=== PATIENT | male | born 1955 | race Caucasian/White ===

== ENCOUNTER 2017-12-30 03:43 | Emergency (ER) | payer MEDICAID, OTHER ==
--- NOTE | 2017-12-30 04:01 | EDM.PDOC ---
ED HPI GENERAL MEDICAL PROBLEM - General Chief Complaint: Abdominal Pain Stated Complaint: [facility] Time Seen by Provider: 12/30/17 03:53 - History of Present Illness INITIAL COMMENTS - FREE TEXT/NARRATIVE: 62-year-old male presents emergency room via EMS with severe abdominal pain. This pain started around 1:00 this morning. The patient vomited twice and then developed severe abdominal pain. He ate supper around 10:00 this evening and has been drinking beer. According to the patient's he drinks on a heavy and regular basis. The patient denies any chest pain with this. No worsening shortness of breath he does have COPD. Abdomen Pain Score (Numeric/FACES): 10 - Related Data Allergies Allergy/AdvReac Type Severity Reaction Status Date / Time ibuprofen [From Motrin] Allergy Hives Verified 12/30/17 06:05 Home Meds: Home Meds Albuterol [Ventolin HFA] 2 puff INH Q4H PRN 11/24/14 [History] Gabapentin [Neurontin] 600 mg PO TID 11/24/14 [History] Hydrophilic Cream [Kerodex 71] 1 applic TP ASDIRECTED PRN 11/24/14 [History] Multivitamin [Multi-Vitamin Daily] 1 each PO DAILY 11/24/14 [History] Pantoprazole [Protonix] 40 mg PO BID 11/24/14 [History] Propranolol [Inderal LA 24 Hr] 80 mg PO DAILY 11/24/14 [History] Terbinafine HCl [Athlete's Foot] 24 gm TP BID 11/24/14 [History] Tiotropium [Spiriva] 18 mcg INH BID 11/24/14 [History] Valproic Acid 750 mg PO BID 11/24/14 [History] atorvaSTATin [Lipitor] 80 mg PO BEDTIME 11/24/14 [History] Levofloxacin [Levaquin] 750 mg PO DAILY #5 tablet 09/15/15 [Rx] Past Medical History HEENT History: Reports: Impaired Vision Other HEENT History: wears glasses Cardiovascular History: Reports: Heart Murmur, High Cholesterol Respiratory History: Reports: Bronchitis, Recurrent, COPD, Pneumonia, Recurrent Gastrointestinal History: Reports: GERD, Hiatal Hernia Genitourinary History: Reports: Neurogenic Bladder Other Genitourinary History: "after surgery couldn't pee." Musculoskeletal History: Reports: Arthritis, Back Pain, Chronic, Fracture, Neck Pain, Chronic Neurological History: Reports: Brain Injury Other Neuro History: 2 traumatic brain surgerys, states has metal plates in head. Psychiatric History: Reports: Addiction, Anxiety Other Psychiatric History: goes to [facility] Hematologic History: Reports: None Dermatologic History: Reports: None - Infectious Disease History Infectious Disease History: Reports: Chicken Pox, Measles - Past Surgical History HEENT Surgical History: Reports: Tonsillectomy GI Surgical History: Reports: Appendectomy Social & Family History - Family History Family Medical History: Noncontributory ED ROS GENERAL - Review of Systems Review Of Systems: See Below Constitutional: Reports: No Symptoms HEENT: Reports: No Symptoms Respiratory: Reports: Cough. Denies: Shortness of Breath, Sputum Cardiovascular: Reports: No Symptoms GI/Abdominal: Reports: Abdominal Pain, Nausea, Vomiting. Denies: Black Stool, Bloody Stool, Constipation, Diarrhea, Difficulty Swallowing : Reports: No Symptoms Musculoskeletal: Reports: No Symptoms Skin: Reports: No Symptoms Neurological: Reports: No Symptoms, Other (Several brain surgeries resulting from traumatic brain injury) Hematologic/Lymphatic: Reports: No Symptoms Immunologic: Reports: No Symptoms ED EXAM, GI/ABD - Physical Exam Exam: See Below Exam Limited By: Intoxication General Appearance: Alert, Moderate Distress (From the pain), Other (He appears a little pale. He is hypotensive which is unusual for him.) Head: Atraumatic, Normocephalic Neck: Normal Inspection, Supple, Non-Tender, Full Range of Motion. No: Lymphadenopathy (L), Lymphadenopathy (R) Respiratory/Chest: No Respiratory Distress, Lungs Clear, Normal Breath Sounds Cardiovascular: Regular Rate, Rhythm, No Edema, No Murmur GI/Abdominal Exam: Other (Decreased bowel sounds significant discomfort all over no pulsatile masses) (Male) Exam: No Hernia Extremities: Normal Inspection, Joint Swelling Neurological: Alert, Other (The patient appears to be under the influence of alcohol) Lymphatic: No Adenopathy EKG INTERPRETATION EKG Date: 12/30/17 Rhythm: NSR [place]: LAD-Left [place] Deviation P-Wave: Present QRS: Other (Incomplete left bundle) ST-T: Normal (Considering left bundle branch block) QT: Prolonged (Order line) Comparison: NA - No Prior EKG EKG Interpretation Comments: Abnormal Course - Vital Signs Last Recorded V/S: Last Vital Signs Temp 35.9 C 12/30/17 05:56 Pulse 99 12/30/17 05:56 Resp 27 H 12/30/17 05:56 BP 95/63 12/30/17 05:56 Pulse Ox 99 12/30/17 03:48 - Orders/Labs/Meds Orders: Active Orders 24 hr Category Date Time Status EKG Documentation Completion [RC] STAT Care 12/30/17 04:14 Active Chest Abdomen Pelvis w Cont [CT] Stat Exams 12/30/17 04:09 Taken CBC WITH MANUAL DIFF [HEME] Stat Lab 12/30/17 05:06 Results INR,PT,PROTHROMBIN TIME [COAG] Stat Lab 12/30/17 05:06 Received PTT,PARTIAL THROMBOPLSTIN TIME [COAG] Stat Lab 12/30/17 05:06 Received RED BLOOD CELLS LP [BBK] Stat Lab 12/30/17 05:25 Ordered TYPE AND SCREEN [BBK] Stat Lab 12/30/17 05:25 Ordered Lactated Ringers [Ringers, Lactated] 1,000 ml Med 12/30/17 05:23 Active IV .BOLUS Sodium Chloride 0.9% [Normal Saline] 1,000 ml Med 12/30/17 04:15 Active IV ASDIRECTED Medication Orders Sodium Chloride (Normal Saline) 1,000 mls @ 125 mls/hr IV ASDIRECTED JOSE Last Admin: 12/30/17 04:17 Dose: 125 mls/hr Lactated Ringer's (Ringers, Lactated) 1,000 mls @ 1,000 mls/hr IV .BOLUS ONE Stop: 12/30/17 06:22 Labs: Laboratory Tests 12/30/17 12/30/17 Range/Units 05:06 05:06 WBC 14.57 H (4.23-9.07) K/mm3 RBC 3.98 L (4.63-6.08) M/mm3 Hgb 11.9 L (13.7-17.5) gm/L Hct 35.4 L (40.1-51.0) % MCV 88.9 (79.0-92.2) fl MCH 29.9 (25.7-32.2) pg MCHC 33.6 (32.2-35.5) g/dl RDW Std Deviation 41.4 (35.1-43.9) fL Plt Count 535 H (163-337) K/mm3 MPV 10.3 (9.4-12.3) fl Sodium 133 L (136-145) mEq/L Potassium 3.2 L (3.5-5.1) mEq/L Chloride 95 L (98-107) mEq/L Carbon Dioxide 24 (21-32) mEq/L Anion Gap 17.2 H (5-15) BUN 12 (7-18) mg/dL Creatinine 0.8 (0.7-1.3) mg/dL Est Cr Clr Drug Dosing 84.39 mL/min Estimated GFR (MDRD) > 60 (>60) mL/min BUN/Creatinine Ratio 15.0 (14-18) Glucose 99 (80-115) mg/dL Calcium 8.4 L (8.5-10.1) mg/dL Total Bilirubin 0.2 (0.2-1.0) mg/dL AST 9 L (15-37) U/L ALT 13 L (16-63) U/L Alkaline Phosphatase 81 (46-116) U/L Troponin I < 0.017 (0.00-0.056) ng/mL Total Protein 6.9 (6.4-8.2) g/dl Albumin 2.8 L (3.4-5.0) g/dl Globulin 4.1 gm/dL Albumin/Globulin Ratio 0.7 L (1-2) Ethyl Alcohol 0.05 (0.00) gm% Meds: Medications Generic Name Dose Route Start Last Admin Trade Name Freq PRN Reason Stop Dose Admin Sodium Chloride 1,000 mls @ 125 mls/hr 12/30/17 04:15 12/30/17 04:17 Normal Saline IV 125 mls/hr ASDIRECTED JOSE Administration Lactated Ringer's 1,000 mls @ 1,000 mls/hr 12/30/17 05:23 Ringers, Lactated IV 12/30/17 06:22 .BOLUS ONE Discontinued Medications Generic Name Dose Route Start Last Admin Trade Name Freq PRN Reason Stop Dose Admin Fentanyl 50 mcg 12/30/17 04:09 12/30/17 04:24 Sublimaze IVPUSH 12/30/17 04:10 50 mcg ONETIME ONE Administration Iopamidol 40 ml 12/30/17 05:55 12/30/17 05:59 Isovue-370 (76%) IVPUSH 05/25/18 05:56 40 ml ONETIME ONE Administration Iopamidol 100 ml 12/30/17 05:55 12/30/17 05:59 Isovue-370 (76%) IVPUSH 12/30/17 05:56 100 ml ONETIME ONE Administration Pantoprazole Sodium 80 mg 12/30/17 04:45 12/30/17 05:04 Protonix Iv IVPUSH 12/30/17 04:46 80 mg .BOLUS ONE Administration - Re-Assessments/Exams Free Text/Narrative Re-Assessment/Exam: 12/30/17 05:10 CT results pending per my interpretation there is lots of free fluid around the liver and spleen scattered throughout the abdomen and a large amount in the pelvis. Stomach and duodenum is duct dilated not a lot of free air. Initially I was concerned about a perforated ulcer this does not appear to be the case however the hansa is hypotensive has free fluid. Discussed the situation with Dr. Fields ER physician at [facility] in [place] who was able to review the CT and agrees and is willing to accept the patient in transfer. Initially I did discuss situation with Dr. Bermudez our on-call surgeon who recommended transfer of the patient. 12/30/17 05:22 Virtual radiology called and believe this gentleman has a ruptured spleen I discussed situation with the patient's and the patient there is no history of trauma. Give Dr. Fields an update anticipating transfusion 2 units of unmatched blood, and a couple units of FFP. Departure - Departure Time of Disposition: 05:34 Disposition: DC/Tfer to Acute Hospital 02 Clinical Impression: Acute bleeding, Splenic rupture - Discharge Information Forms: ED Department Discharge - My Orders Last 24 Hours: My Active Orders 12/30/17 04:09 Chest Abdomen Pelvis w Cont [CT] Stat 12/30/17 04:14 EKG Documentation Completion [RC] STAT 12/30/17 04:15 Sodium Chloride 0.9% [Normal Saline] 1,000 ml IV ASDIRECTED 12/30/17 05:06 CBC WITH MANUAL DIFF [HEME] Stat INR,PT,PROTHROMBIN TIME [COAG] Stat PTT,PARTIAL THROMBOPLSTIN TIME [COAG] Stat 12/30/17 05:23 Lactated Ringers [Ringers, Lactated] 1,000 ml IV .BOLUS 12/30/17 05:25 RED BLOOD CELLS LP [BBK] Stat TYPE AND SCREEN [BBK] Stat - Assessment/Plan Last 24 Hours: My Active Orders 12/30/17 04:09 Chest Abdomen Pelvis w Cont [CT] Stat 12/30/17 04:14 EKG Documentation Completion [RC] STAT 12/30/17 04:15 Sodium Chloride 0.9% [Normal Saline] 1,000 ml IV ASDIRECTED 12/30/17 05:06 CBC WITH MANUAL DIFF [HEME] Stat INR,PT,PROTHROMBIN TIME [COAG] Stat PTT,PARTIAL THROMBOPLSTIN TIME [COAG] Stat 12/30/17 05:23 Lactated Ringers [Ringers, Lactated] 1,000 ml IV .BOLUS 12/30/17 05:25 RED BLOOD CELLS LP [BBK] Stat TYPE AND SCREEN [BBK] Stat
[2017-12-30] MEDS ORDERED: fentaNYL 100 MCG/2 ML SDV IVPUSH ONE (04:09)
[2017-12-30] MEDS ORDERED: Sodium Chloride 0.9% 1,000 ML IV SCH (04:15)
[2017-12-30] MEDS ORDERED: Pantoprazole 40 MG Vial IVPUSH ONE (04:45)
[2017-12-30] MEDS ORDERED: Lactated Ringers 1,000 ML IV ONE (05:23)
[2017-12-30 05:54] VITALS: BP 95/63
[2017-12-30] MEDS ORDERED: Iopamidol 755 MG/ML 50 ML Bottle IVPUSH ONE (05:55)
[2017-12-30] MEDS ORDERED: Iopamidol 755 Mg/ML 100 ML Bottle IVPUSH ONE (05:55)
--- NOTE | 2017-12-30 10:43 | CT ---
CT chest Technique: Multiple axial sections were obtained from above the lung apices inferiorly through the lung bases. Intravenous contrast was utilized. Comparison: Prior noncontrast chest CT study of 10/05/12. Findings: Aorta shows no dissection. Mild atherosclerotic change is seen. Visualized pulmonary arteries show no filling defects of pulmonary embolism. No pericardial thickening is seen. Small normal-appearing lymph nodes are seen within the mediastinum. No axillary adenopathy is seen. Emphysematous change is seen. Slight areas of scarring are seen within both lungs. Findings are fairly stable from previous CT exam. Bone window settings show mild degenerative change within the spine with mild scoliosis. Nothing acute seen within the osseous structures. Impression: 1. Emphysematous change. Other incidental findings. Nothing acute is identified on CT study of the chest. Diagnostic code #3 I agree with preliminary report from [employer], finalized at 12/30/17, 6:[address] abdomen and pelvis Technique: Multiple axial sections were obtained from above the dome of the diaphragm inferiorly to the pubic symphysis. Intravenous contrast was utilized. No oral contrast has been given. Comparison: No prior CT abdomen or pelvis exam is available. Findings: Diffusely abnormal spleen is seen which may represent spontaneous rupture or bleeding from a vascular anomaly. There is blood being seen around the liver as well as blood being seen within the dependent portions of the pelvis. Liver shows no focal abnormality. Aorta shows atherosclerotic change without aneurysm or dissection. Adrenal glands show no abnormality. Cortical cyst is noted within the left kidney measuring approximately 1.2 cm. Kidneys are otherwise unremarkable. Pancreas appears normal. No retroperitoneal adenopathy or mesenteric abnormalities are seen. No pelvic mass or adenopathy is seen. Scattered degenerative change is noted within the spine with no acute osseous abnormality seen. Lucent lesion is seen within the right and left iliac wings felt to represent more focal osteopenia. Impression: 1. Abnormal spleen compatible with splenic rupture or intrasplenic hematoma from vascular anomaly. There is blood being seen around the liver as well as blood within the dependent portions of the pelvis. 2. Other incidental findings as noted above. Diagnostic code #5 I agree with preliminary report from [employer], finalized at 12/30/17, 6:32 AM Central Time
== END 2017-12-30 06:15 ==
LOC: JD.ED 03:43
DX: D73.5 Infarction of spleen (principal); R58 Hemorrhage, not elsewhere classified; E78.00 Pure hypercholesterolemia, unspecified; Z88.6 Allergy status to analgesic agent; Z79.899 Other long term (current) drug therapy
CPT/HCPCS: 36415; 71260; 74177; 80053; 84484; 85007; 85027; 85610; 85730; 93005; 96361; 96374; 96375; 99285; C9113; G0480; J3010; J7040; J7120; P9016; Q9967; 36430; 86900; 86901; 86922; P9017

== ENCOUNTER 2019-08-15 05:41 | Emergency (ER) | payer OTHER ==
[2019-08-15 05:58] VITALS: BP 114/76; PULSE 86
--- NOTE | 2019-08-15 06:42 | EDM.PDOC ---
ED HPI GENERAL MEDICAL PROBLEM - General Chief Complaint: Upper Extremity Injury/Pain Stated Complaint: INJURED RIGHT WRIST Time Seen by Provider: 08/15/19 06:13 Source of Information: Reports: Patient, Family () History Limitations: Reports: No Limitations - History of Present Illness INITIAL COMMENTS - FREE TEXT/NARRATIVE: Mr. Cabrera is a very pleasant 64-year-old man with a past medical history significant for to traumatic brain injuries in 2012, both requiring craniotomy, who states that he "tweaked" his right wrist while getting some guns down from overhead, in order to clean them, yesterday. He states that he had no pain initially, but that he woke up around 03:00 this morning with pain and swelling to the radial aspect of his right wrist. No other recent trauma or injury to his wrist. No prior similar symptoms. The patient applied a Lidoderm patch to the dorsum of his right wrist. The patient's PCP is SAMANTHA Basurto, at the [facility]. The patient received an influenza vaccine this season. Right Wrist Pain Score (Numeric/FACES): 5 - Related Data Allergies Allergy/AdvReac Type Severity Reaction Status Date / Time ibuprofen [From Motrin] Allergy Hives Verified 03/06/18 03:00 Home Meds: Home Meds Albuterol [Ventolin HFA] 2 puff INH Q4H PRN 11/24/14 [History] Gabapentin [Neurontin] 600 mg PO TID 11/24/14 [History] Multivitamin [Multi-Vitamin Daily] 1 each PO DAILY 11/24/14 [History] Pantoprazole [Protonix] 40 mg PO BID 11/24/14 [History] Propranolol [Inderal LA 24 Hr] 80 mg PO DAILY 11/24/14 [History] Valproic Acid 750 mg PO BID 11/24/14 [History] Past Medical History HEENT History: Reports: Impaired Vision Other HEENT History: wears glasses Cardiovascular History: Reports: High Cholesterol Respiratory History: Reports: COPD (PFT-proven) Gastrointestinal History: Reports: GERD, Hiatal Hernia, Other (See Below) ( Liver + speeen laceration) Musculoskeletal History: Reports: Arthritis, Fracture (left thumb) Neurological History: Reports: Brain Injury (x 2, 2012, both requiring craniotomy) Psychiatric History: Reports: Addiction (alcohol), Anxiety - Infectious Disease History Infectious Disease History: Reports: Chicken Pox, Measles - Past Surgical History Head Surgeries/Procedures: Reports: Craniotomy (x 2, both in 2013) HEENT Surgical History: Reports: Oral Surgery (wisdom teeth extraction), Tonsillectomy GI Surgical History: Reports: Appendectomy Social & Family History - Family History Family Medical History: Noncontributory - Tobacco Use Smoking Status *Q: Current Every Day Smoker Years of Tobacco use: 50 Packs/Tins Daily: 1 - Caffeine Use Caffeine Use: Reports: None - Alcohol Use Alcohol Use History: Yes Date/Time of Last Drink Comment: Alcoholic, but currently drinking responsibly Alcohol Use Frequency: Socially - Recreational Drug Use Recreational Drug Use: Yes Drug Use in Last 12 Months: No Recreational Drug Type: Reports: Marijuana/Hashish (can't remember when last smoked) - Living Situation & Occupation Living situation: Reports: , with Spouse Occupation: Retired Review of Systems - Review of Systems Review Of Systems: Comprehensive ROS is negative, except as noted in HPI. Musculoskeletal: Reports: Neck Pain, Back Pain ED EXAM, GENERAL - Physical Exam Exam: See Below Exam Limited By: No Limitations General Appearance: Alert, WD/WN, No Apparent Distress Extremities: Other (There is very mild swelling to the radial aspect of the patient's right wrist, with no other visible abnormalities, such as erythema, ecchymosis, or abrasion. The patient has considerable tenderness to the anatomic snuffbox, dorsal to the extensor pollicis longus. Pain is induced in this area with attempts at ROM. Neurovascular status of the right hand is intact.) Course - Vital Signs Last Recorded V/S: Last Vital Signs Temp 36.9 C 08/15/19 05:56 Pulse 86 08/15/19 05:56 Resp 16 08/15/19 05:56 BP 114/76 08/15/19 05:56 Pulse Ox 99 08/15/19 05:56 - Re-Assessments/Exams Free Text/Narrative Re-Assessment/Exam: 08/15/19 06:36 The patient has tenderness in his anatomic snuffbox. He likely has a radiocarpal ligament strain. There is no suggestion that he has a fracture, therefore x-rays are not indicated. I am recommending that he purchase an over- the-counter wrist brace, that he wear it for at least a week, and ice the area as much as possible for several days. Since he is allergic to ibuprofen, he can take Tylenol for discomfort. I will refer him to Ortho, in the event that his wrist doesn't get better by 2 weeks. Departure - Departure Time of Disposition: 06:39 Disposition: Home, Self-Care 01 Condition: Good Clinical Impression: Sprain of radiocarpal ligament of right wrist - Discharge Information *PRESCRIPTION DRUG MONITORING PROGRAM REVIEWED*: Not Applicable *COPY OF PRESCRIPTION DRUG MONITORING REPORT IN PATIENT MARTHA: Not Applicable Referrals: Ashwin Toledo MD [Physician] - Radha Mosley PA-C [Ordering Only Provider] - Additional Instructions: You were seen in the emergency room after developing right wrist pain this morning after cleaning your guns yesterday. Based on your history and physical examination, you have most likely strained a radiocarpal ligament in your right wrist. We recommend that you purchase an [id number] wrist brace and wear it as much as possible. We recommend that you apply ice to the affected area as much as possible for the next few days. Take [id number] Tylenol as needed for discomfort. If your wrist has not significantly improved within 2 weeks, please follow-up with the Orthopedic Surgeon Dr. Ashwin Toledo. If any other problems, please do not hesitate to return to the ER. Sepsis Event Note - Evaluation Sepsis Screening Result: No Definite Risk - Focused Exam Vital Signs: Vital Signs Temp Pulse Resp BP Pulse Ox 08/15/19 05:56 36.9 C 86 16 114/76 99 Date Exam was Performed: 08/15/19 Time Exam was Performed: 06:36
== END 2019-08-15 06:48 | disposition home or self-care (01) ==
LOC: JD.ED 05:41
DX: S63.501A Unspecified sprain of right wrist, initial encounter (principal); J44.9 Chronic obstructive pulmonary disease, unspecified; K21.9 Gastro-esophageal reflux disease without esophagitis; F17.210 Nicotine dependence, cigarettes, uncomplicated; Z88.6 Allergy status to analgesic agent; Z79.899 Other long term (current) drug therapy; X50.1XXA Overexertion from prolonged static or awkward postures, initial encounter; Y93.89 Activity, other specified
CPT/HCPCS: 99282; 99283

== ENCOUNTER 2019-12-14 09:33 | Emergency (ER) | payer OTHER ==
[2019-12-14] MEDS ORDERED: Metoclopramide 10 MG/2 ML SDV IVPUSH ONE (09:58)
[2019-12-14] MEDS ORDERED: HYDROmorphone 0.5 MG/0.5 ML Syringe IVPUSH ONE (09:58)
[2019-12-14] MEDS ORDERED: Aspirin 81 MG Tab.Chew PO ONE (09:58)
[2019-12-14] MEDS ORDERED: Sodium Chloride 0.9% 1,000 ML IV SCH (10:00)
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
[2019-12-14] MEDS ORDERED: Nitroglycerin/D5W 25 MG/250 ML BOTTLE IV SCH (10:15)
--- NOTE | 2019-12-14 10:27 | CR ---
Chest: Portable view of the chest was obtained. Comparison: Prior chest x-ray of 09/15/15. Heart size and mediastinum are normal. Emphysematous and subpleural bleb is noted within the left upper chest which has slightly increased in size from previous exam. Lungs show no acute parenchymal change. Heart size and mediastinum are normal. Bony structures are grossly intact. Impression: 1. Emphysematous and subpleural bleb within the left upper chest which has slightly increased in size from prior chest x-ray. 2. Nothing acute is otherwise seen on portable chest x-ray. Diagnostic code #3 This report was dictated in MDT
[2019-12-14] MEDS ORDERED: Albuterol/Ipratropium 3.0-0.5 MG/3 ML Neb Soln NEB ONE (10:36)
[2019-12-14 11:32] VITALS: BP 109/72; PULSE 60
== END 2019-12-14 11:40 | disposition home or self-care (01) ==
LOC: JD.ED 09:33
DX: J40 Bronchitis, not specified as acute or chronic (principal); R09.1 Pleurisy; F17.210 Nicotine dependence, cigarettes, uncomplicated; J44.9 Chronic obstructive pulmonary disease, unspecified; K21.9 Gastro-esophageal reflux disease without esophagitis; Z88.6 Allergy status to analgesic agent
CPT/HCPCS: 36415; 71045; 80053; 82553; 83735; 83880; 84484; 85007; 85027; 85610; 86140; 94640; 96365; 96375; 99285; A9270; J1170; J2765; J3490; J7030; 93010; 99284

== ENCOUNTER 2020-01-27 18:42 | Emergency (ER) | payer MEDICARE, OTHER ==
[2020-01-27 18:53] VITALS: BP 133/75; PULSE 71
[2020-01-27] MEDS ORDERED: HYDROmorphone 0.5 MG/0.5 ML Syringe IM ONE (19:09)
--- NOTE | 2020-01-27 19:15 | EDM.PDOC ---
ED HPI GENERAL MEDICAL PROBLEM - General Chief Complaint: Lower Extremity Injury/Pain Stated Complaint: LEFT KNEE INJURY Time Seen by Provider: 01/27/20 18:49 Source of Information: Reports: Patient, RN Notes Reviewed History Limitations: Reports: No Limitations - History of Present Illness INITIAL COMMENTS - FREE TEXT/NARRATIVE: Patient is a 64-year-old male who presents to the ED for his left knee pain. Patient notes that this pain started this morning very suddenly, he states he was just sitting on his couch, putting on his longjohns when his knee started to hurt. He denies any trauma or twisting injury to the knee. Patient does not remember injuring it in any way a few days prior to this as well. It is not reddened, there is a mild amount of swelling compared to the right knee, but no obvious swelling appreciated. There is an area that is tender to touch on the left inferiomedial aspect of the knee, he has had no surgery to the knee in the past. Patient states it is a sharp stabbing pain, and he states it hurts very much to walk, and states he has not been walking around much at all today due to the pain. Usually uses a cane or walker for ambulation, but again he has not been walking much at all due to the pain. Patient states he does have an allergy to ibuprofen, he did not take any sort of Tylenol. He was given 1 tablet of his 's generic Flexeril, and been using a lidocaine patch to the area nothing seems to really be helping. Patient denies any other sick-like symptoms, fever/chills, cough/shortness of breath, nausea/vomiting/diarrhea. Patient further denies any numbness or tingling distal to the extremity, or pain more proximal to the injury. He can plantarflex and dorsiflex his right foot without much issue. Left Knee Pain Score (Numeric/FACES): 9 - Related Data Allergies Allergy/AdvReac Type Severity Reaction Status Date / Time ibuprofen [From Motrin] Allergy Severe Hives Verified 01/27/20 18:52 Home Meds: Home Meds Albuterol [Ventolin HFA] 2 puff INH Q4H PRN 11/24/14 [History] Gabapentin [Neurontin] 600 mg PO TID 11/24/14 [History] Multivitamin [Multi-Vitamin Daily] 1 each PO DAILY 11/24/14 [History] Pantoprazole [Protonix] 40 mg PO BID 11/24/14 [History] Propranolol [Inderal LA 24 Hr] 80 mg PO DAILY 11/24/14 [History] Acetaminophen/HYDROcodone [Ewing 325-5 MG] 1 tab PO Q6H PRN #15 tablet 01/27/20 [Rx] Aspirin 81 mg PO DAILY 01/27/20 [History] Cholecalciferol (Vitamin D3) [Vitamin D3] 400 unit PO DAILY 01/27/20 [History] atorvaSTATin Calcium [Atorvastatin Calcium] 80 mg PO BEDTIME 01/27/20 [History] predniSONE 20 mg PO ASDIRECTED #15 tab 01/27/20 [Rx] Past Medical History HEENT History: Reports: Impaired Vision Other HEENT History: wears glasses Cardiovascular History: Reports: High Cholesterol Respiratory History: Reports: COPD Gastrointestinal History: Reports: GERD, GI Bleed, Hiatal Hernia, Other (See Below) Other Gastrointestinal History: ruptured spleen, "nonfunctioning liver." Genitourinary History: Reports: Neurogenic Bladder Other Genitourinary History: "after surgery couldn't pee." Musculoskeletal History: Reports: Arthritis, Fracture Neurological History: Reports: Brain Injury, Concussion, Head Trauma, Seizure Other Neuro History: 2 traumatic brain surgeries, states has metal plates in head. Psychiatric History: Reports: Addiction, Anxiety Other Psychiatric History: goes to AA - Infectious Disease History Infectious Disease History: Reports: Chicken Pox, Measles - Past Surgical History Head Surgeries/Procedures: Reports: Craniotomy HEENT Surgical History: Reports: Oral Surgery, Tonsillectomy GI Surgical History: Reports: Appendectomy, Other (See Below) Other GI Surgeries/Procedures: Surgery to fix spleen issue. Neurological Surgical History: Reports: Other (See Below) Other Neurological Surgeries/Procedures: 2 traumatic brain surgeries, states has metal plates in head. Social & Family History - Family History Family Medical History: Noncontributory - Tobacco Use Smoking Status *Q: Current Every Day Smoker Years of Tobacco use: 50 Packs/Tins Daily: 1 - Caffeine Use Caffeine Use: Reports: None - Alcohol Use Alcohol Use History: Yes - Recreational Drug Use Recreational Drug Use: No - Living Situation & Occupation Living situation: Reports: , with Spouse Occupation: Retired Review of Systems - Review of Systems Review Of Systems: Comprehensive ROS is negative, except as noted in HPI. ED EXAM, GENERAL - Physical Exam Exam: See Below Exam Limited By: No Limitations General Appearance: Alert, WD/WN, No Apparent Distress Respiratory/Chest: No Respiratory Distress, Lungs Clear, Normal Breath Sounds, No Accessory Muscle Use, Chest Non-Tender Cardiovascular: Normal Peripheral Pulses, Regular Rate, Rhythm, No Murmur Peripheral Pulses: 3+: Radial (L), Radial (R), Dorsalis Pedis (L), Dorsalis Pedis (R) Extremities: Normal Inspection, Normal Range of Motion (pt can move his left knee in full extension and flexion; it is slow and painful to do so, but has full ROM), Normal Capillary Refill, Other (point tenderness to left inferiormedial knee, slight swelling appreciated to the area as compared to right knee). No: Increased Warmth, Redness Neurological: Alert, Oriented, Normal Cognition, No Motor/Sensory Deficits Psychiatric: Normal Affect, Normal Mood Skin Exam: Warm, Dry, Intact, Normal Color, No Rash Course - Vital Signs Last Recorded V/S: Last Vital Signs Temp 96.9 F 01/27/20 18:49 Pulse 71 01/27/20 18:49 Resp 16 01/27/20 18:49 BP 133/75 01/27/20 18:49 Pulse Ox 94 L 01/27/20 18:49 - Orders/Labs/Meds Orders: Active Orders 24 hr Category Date Time Status DESHAWN Bandage [Elastic Wrap] [OM.PC] Routine Oth 01/27/20 20:07 Ordered Meds: Medications Discontinued Medications Generic Name Dose Route Start Last Admin Trade Name Kimberley PRN Reason Stop Dose Admin Hydrocodone Bitart/Acetaminophen 2 tab 01/27/20 20:08 Ewing 325-5 Mg PO 01/27/20 20:09 ONETIME ONE Hydromorphone HCl 0.5 mg 01/27/20 19:09 01/27/20 19:21 Dilaudid IM 01/27/20 19:10 0.5 mg ONETIME ONE Administration Prednisone 40 mg 01/27/20 20:07 Prednisone PO 01/27/20 20:08 ONETIME ONE - Re-Assessments/Exams Free Text/Narrative Re-Assessment/Exam: 01/27/20 19:17 Patient presents to the ED for evaluation of his left knee injury. There is no redness or warmth of the joint, that would suggest gout, the sudden onset is suspicious for gout. Patient is tender to this area, there is minimal amount of swelling, and very much point tenderness as compared to the left joint. Patient will be given 0.5 mg IM Dilaudid for initial management along with knee x-rays to rule out bony injury. Suspicious for bursitis versus gout versus other soft tissue injury at this time. 01/27/20 19:58 Patient's x-ray has returned, and was reviewed by myself and Dr. Flores, everything appears to be within normal limits. There are no bony abnormalities or acute fractures appreciated. Patient will be discharged home with a few tablets of pain medication, a course of prednisone for suspected bursitis and conservative measures with a recommendation to follow up with his regular provider for further imaging this week if warranted. Departure - Departure Time of Disposition: 20:00 Disposition: Home, Self-Care 01 Condition: Good Clinical Impression: Left medial knee pain Bursitis of knee Qualifiers: Knee bursitis location: unspecified Laterality: left Qualified Code(s): M70.52 - Other bursitis of knee, left knee - Discharge Information *PRESCRIPTION DRUG MONITORING PROGRAM REVIEWED*: No *COPY OF PRESCRIPTION DRUG MONITORING REPORT IN PATIENT MARTHA: No Prescriptions: Acetaminophen/HYDROcodone [Ewing 325-5 MG] 1 tab PO Q6H PRN #15 tablet PRN Reason: Pain predniSONE 20 mg PO ASDIRECTED #15 tab Instructions: Bursitis, [id number], Acute Knee Pain, Adult, [id number] Referrals: Radha Mosley PA-C [Primary Care Provider] - Forms: ED Department Discharge Additional Instructions: You have been evaluated in the ED for your right knee pain. Your x-ray demonstrated no acute fracture or other bony abnormality. Please use ice/heat as tolerated to the affected area. Please try to elevate the affected area to relieve swelling. Your knee has been DESHAWN wrapped to provide compression to your knee to help relieve the swelling. You may take Tylenol 500 mg q6 hrs for pain relief. Please do so until you have a tolerable level of pain with activity. Do not exceed 4000mg Tylenol in a 24 hour time period. You were given a prescription for prednisone, please take as prescribed for suspected bursitis. You were started on this medication at [facility]'s ER visit. You were given a prescription for a strong pain medication, hydrocodone/acetaminophen 5/325mg, please take 1 tab every 6 hours as needed for pain not relieved by Tylenol or ibuprofen alone. Please note this medication does contain Tylenol in it, so do not take more than 4000 mg in a 24-hour time span. These medications can be addictive, so please take as few as possible to achieve adequate pain control. These meds can also be quite constipating, recommend that you increase your oral fluid intake and take a stool softener like MiraLAX while taking these medications. Do not drive while taking this medication. You will need to fill these medications at the Clinic pharmacy tomorrow to start taking as prescribed. If your knee is not feeling much better after these conservative measures after about 7-10 days, you should talk with your regular provider about a possible MRI of the knee to rule out any other soft tissue injury, not made apparent at tonight's visit. Please return to ED if your symptoms should change or worsen. Sepsis Event Note (ED) - Evaluation Sepsis Screening Result: No Definite Risk - Focused Exam Vital Signs: Vital Signs Temp Pulse Resp BP Pulse Ox 01/27/20 18:49 96.9 F 71 16 133/75 94 L - My Orders Last 24 Hours: My Active Orders 01/27/20 20:07 DESHAWN Bandage [Elastic Wrap] [OM.PC] Routine - Assessment/Plan Last 24 Hours: My Active Orders 01/27/20 20:07 DESHAWN Bandage [Elastic Wrap] [OM.PC] Routine
[2020-01-27] MEDS ORDERED: predniSONE 20 MG Tab PO ONE (20:07)
[2020-01-27] MEDS ORDERED: Acetaminophen/HYDROcodone 325-5 MG Tab PO ONE (20:08)
--- NOTE | 2020-01-27 20:15 | CR ---
Left knee: 4 views left knee were obtained. Comparison: Previous left knee exam of 05/07/13. Findings: Medial and lateral joint compartments are maintained in height. No joint effusion is seen. No fracture, dislocation or other bony abnormality is identified. Impression: 1. No abnormality is appreciated on left knee exam. Diagnostic code #1 Study was dictated in MDT
== END 2020-01-27 20:23 | disposition home or self-care (01) ==
LOC: JD.ED 18:42
DX: M71.562 Other bursitis, not elsewhere classified, left knee (principal); K21.9 Gastro-esophageal reflux disease without esophagitis; E78.00 Pure hypercholesterolemia, unspecified; J44.9 Chronic obstructive pulmonary disease, unspecified; F17.210 Nicotine dependence, cigarettes, uncomplicated; Z88.6 Allergy status to analgesic agent; Z79.82 Long term (current) use of aspirin; Z79.899 Other long term (current) drug therapy
CPT/HCPCS: 73564; 96372; 99283; A9270; J1170; J7512

== ENCOUNTER 2022-02-05 15:12 | Emergency (ER) | payer OTHER, SELFPAY ==
[2022-02-05 16:13] VITALS: BP 145/75; PULSE 77
[2022-02-05 17:30] LABS: ESTIMATED GFR 93 mL/min (>60)
== END 2022-02-05 18:21 | disposition left against medical advice (07) ==
LOC: JD.ED 15:12
DX: Z53.21 Procedure and treatment not carried out due to patient leaving prior to being seen by health care provider (principal)
CPT/HCPCS: 36415; 80053; 83690; 85025; 85610

== ENCOUNTER 2022-03-07 15:09 | Emergency (ER) | payer OTHER, SELFPAY | END 2022-03-07 16:35 | disposition left against medical advice (07) | LOC: JD.ED 15:09 | DX: Z53.21 Procedure and treatment not carried out due to patient leaving prior to being seen by health care provider (principal) ==

== ENCOUNTER 2022-03-08 14:13 | Emergency (ER) | payer OTHER, SELFPAY ==
[2022-03-08 15:38] VITALS: BP 138/90; PULSE 75
[2022-03-08] MEDS ORDERED: traMADol 50 MG Tab PO ONE (15:59)
[2022-03-08] MEDS ORDERED: Orphenadrine 100 MG Tab.ER PO ONE (15:59)
[2022-03-08] MEDS ORDERED: Acetaminophen/oxyCODONE 325-5 MG Tab PO ONE (16:48)
== END 2022-03-08 16:55 | disposition home or self-care (01) ==
LOC: JD.ED 14:13
DX: M54.50 Low back pain, unspecified (principal); E78.00 Pure hypercholesterolemia, unspecified; J44.9 Chronic obstructive pulmonary disease, unspecified; K21.9 Gastro-esophageal reflux disease without esophagitis; F17.210 Nicotine dependence, cigarettes, uncomplicated; Z91.048 Other nonmedicinal substance allergy status; Z88.8 Allergy status to other drugs, medicaments and biological substances; Z79.82 Long term (current) use of aspirin; Z79.899 Other long term (current) drug therapy
CPT/HCPCS: 72100; 99283; A9270

== ENCOUNTER 2022-03-18 14:29 | Emergency (ER) | payer OTHER, SELFPAY ==
[2022-03-18 14:51] VITALS: BP 125/88; PULSE 74
[2022-03-18 15:35] LABS: ESTIMATED GFR 93 mL/min (>60)
[2022-03-18 15:44] LABS: CORONAVIRUS COVID-19 NAA NEGATIVE (NEGATIVE)
== END 2022-03-18 16:30 | disposition home or self-care (01) ==
LOC: SUPCPDRO 14:29 → JD.ED 14:29
DX: R26.89 Other abnormalities of gait and mobility (principal); S09.90XS Unspecified injury of head, sequela; J44.9 Chronic obstructive pulmonary disease, unspecified; E78.00 Pure hypercholesterolemia, unspecified; K21.9 Gastro-esophageal reflux disease without esophagitis; F17.210 Nicotine dependence, cigarettes, uncomplicated; Z91.048 Other nonmedicinal substance allergy status; Z79.82 Long term (current) use of aspirin; Z79.899 Other long term (current) drug therapy; Z20.822 Contact with and (suspected) exposure to COVID-19
CPT/HCPCS: 0240U; 36415; 70450; 80053; 81001; 83735; 85025; 86140; 99284

== ENCOUNTER 2022-05-10 08:00 | Emergency (ER) | payer OTHER, SELFPAY | END 2022-05-10 14:58 | disposition left against medical advice (07) | LOC: JD.ED 08:00 | DX: Z53.21 Procedure and treatment not carried out due to patient leaving prior to being seen by health care provider (principal) ==

== ENCOUNTER 2022-12-25 08:45 | Emergency (ER) | payer OTHER ==
[2022-12-25] MEDS ORDERED: Ketorolac 30 MG/ML SDV IM ONE (09:26)
[2022-12-25] MEDS ORDERED: Orphenadrine 100 MG Tab.ER PO STA (09:26)
[2022-12-25 10:52] VITALS: BP 131/74; PULSE 65
== END 2022-12-25 10:52 | disposition home or self-care (01) ==
LOC: JD.ED 08:45
DX: M54.2 Cervicalgia (principal); K21.9 Gastro-esophageal reflux disease without esophagitis; Z88.8 Allergy status to other drugs, medicaments and biological substances; Z91.09 Other allergy status, other than to drugs and biological substances; Z79.82 Long term (current) use of aspirin; Z79.899 Other long term (current) drug therapy
CPT/HCPCS: 72125; 96372; 99283; A9270; J1885

== ENCOUNTER 2023-05-01 18:34 | Emergency (ER) | payer OTHER ==
[2023-05-01 18:50] VITALS: PULSE 73
[2023-05-01] MEDS ORDERED: HYDROmorphone 0.5 MG/0.5 ML Syringe IVPUSH ONE (19:17)
[2023-05-01] MEDS ORDERED: Metoclopramide 10 MG/2 ML SDV IVPUSH ONE (19:17)
[2023-05-01 19:56] LABS: BASOPHILS ABSOLUTE AUTO 0.2 K/mm3 (0.0-0.2); BASOPHILS PERCENT AUTO 2.3 % (0.0-1.0); EOSINOPHILS ABSOLUTE AUTO 0.4 K/mm3 (0.0-0.4); HEMATOCRIT 39.5 % (42.0-52.0); HEMOGLOBIN 13.2 gm/dl (14.0-18.0); IMMATURE GRAN ABSOLUTE AUTO 0.03 K/mm3 (0.00-0.05); IMMATURE GRAN PERCENT AUTO 0.3 % (0.0-0.4); LYMPHOCYTES ABSOLUTE AUTO 4.7 K/mm3 (1.0-4.8); LYMPHOCYTES PERCENT AUTO 44.8 % (24.0-44.0); MEAN CORPUSCULAR HEMOGLOBIN 30.6 pg (28.0-32.0); MEAN CORPUSCULAR HGB CONC 33.4 g/dl (32.0-36.0); MEAN CORPUSCULAR VOLUME 91.4 fl (83.0-99.0); MEAN PLATELET VOLUME 10.4 fl (9.4-12.4); MONOCYTES ABSOLUTE AUTO 0.9 K/mm3 (0.0-0.8); MONOCYTES PERCENT AUTO 8.3 % (0.0-8.0); NEUTROPHILS ABSOLUTE AUTO 4.2 K/mm3 (1.8-7.7); NEUTROPHILS PERCENT AUTO 40.3 % (41.0-71.0); PLATELET COUNT,PLT 436 K/mm3 (150-400); RED BLOOD CELL COUNT 4.32 M/mm3 (4.52-5.90); WHITE BLOOD CELL COUNT,WBC 10.47 K/mm3 (3.9-11.3)
[2023-05-01] MEDS ORDERED: Sodium Chloride 0.9% 10 ML SDV FLUSH ONE (19:57)
[2023-05-01] MEDS ORDERED: Iopamidol 612 MG/ML 100 ML Bottle IVPUSH ONE (19:57)
[2023-05-01 20:14] LABS: ALBUMIN 3.4 g/dl (3.4-5.0); ANION GAP 12.2 (5-15); BILIRUBIN TOTAL 0.3 mg/dL (0.2-1.0); BUN/CREATININE RATIO 18.9 (14-18); C-REACTIVE PROTEIN 0.2 mg/dL (<1.0); CALCIUM 8.8 mg/dL (8.5-10.1); CREATININE 0.9 mg/dL (0.7-1.3); EST CRCL DRUG DOSING (CG) 72.03 mL/min; MAGNESIUM 1.8 mg/dL (1.8-2.4); POTASSIUM,K 4.2 mEq/L (3.5-5.1); PROTEIN TOTAL,TP 6.9 g/dl (6.4-8.2)
[2023-05-01] MEDS: Sodium Chloride 0.9% 10 ML Syringe FLUSH PRN ×2 (20:29→20:48)
[2023-05-02 05:48] VITALS: BP 103/75
== END 2023-05-01 22:10 | disposition home or self-care (01) ==
LOC: JD.ED 18:34
DX: R07.89 Other chest pain (principal); F17.210 Nicotine dependence, cigarettes, uncomplicated; E78.00 Pure hypercholesterolemia, unspecified; K21.9 Gastro-esophageal reflux disease without esophagitis; J44.9 Chronic obstructive pulmonary disease, unspecified; Z79.899 Other long term (current) drug therapy; Z88.6 Allergy status to analgesic agent; Z91.09 Other allergy status, other than to drugs and biological substances; Z91.048 Other nonmedicinal substance allergy status
CPT/HCPCS: 36415; 71260; 80053; 83540; 83735; 83880; 84484; 85025; 85379; 86140; 93005; 96374; 96375; 99285; J1170; J2765; J3490; Q9967; 93010; 99284

== ENCOUNTER 2023-06-14 18:17 | Emergency (ER) | payer OTHER ==
[2023-06-14 19:28] LABS: BASOPHILS ABSOLUTE AUTO 0.2 K/mm3 (0.0-0.2); BASOPHILS PERCENT AUTO 1.9 % (0.0-1.0); EOSINOPHILS ABSOLUTE AUTO 0.3 K/mm3 (0.0-0.4); EOSINOPHILS PERCENT AUTO 3.9 % (0.0-6.0); HEMATOCRIT 40.7 % (42.0-52.0); HEMOGLOBIN 14.1 gm/dl (14.0-18.0); IMMATURE GRAN ABSOLUTE AUTO 0.03 K/mm3 (0.00-0.05); IMMATURE GRAN PERCENT AUTO 0.4 % (0.0-0.4); MEAN CORPUSCULAR HEMOGLOBIN 31.2 pg (28.0-32.0); MEAN CORPUSCULAR HGB CONC 34.6 g/dl (32.0-36.0); MEAN PLATELET VOLUME 9.9 fl (9.4-12.4); MONOCYTES ABSOLUTE AUTO 0.7 K/mm3 (0.0-0.8); MONOCYTES PERCENT AUTO 8.5 % (0.0-8.0); NEUTROPHILS ABSOLUTE AUTO 3.3 K/mm3 (1.8-7.7); NEUTROPHILS PERCENT AUTO 38.3 % (41.0-71.0); PLATELET COUNT,PLT 467 K/mm3 (150-400); RED BLOOD CELL COUNT 4.52 M/mm3 (4.52-5.90); WHITE BLOOD CELL COUNT,WBC 8.57 K/mm3 (3.9-11.3)
[2023-06-14 19:35] LABS: APPEARANCE,URINE CLEAR (Clear); BILIRUBIN,URINE NEGATIVE (Negative); COLOR,URINE YELLOW (Yellow); GLUCOSE,URINE NEGATIVE (Negative); KETONES,URINE NEGATIVE (Negative); LEUKOCYTE ESTERASE,URINE NEGATIVE (Negative); NITRITE,URINE NEGATIVE (Negative); OCCULT BLOOD,URINE NEGATIVE (Negative); PH,URINE 6.5 (5.0-8.0); PROTEIN,URINE NEGATIVE (Negative); UROBILINOGEN,URINE 0.2 (0.2-1.0)
[2023-06-14 19:40] VITALS: BP 108/69; PULSE 68
[2023-06-14 19:45] LABS: RBC,URINE 0-5 /hpf (0-5); SQUAMOUS EPITHELIAL CELLS,UR 0-5 /hpf (0-5); WBC,URINE 0-5 /hpf (0-5)
[2023-06-14 19:46] LABS: BACTERIA,URINE OCCASIONAL /hpf (FEW); MUCUS,URINE FEW /hpf (FEW)
[2023-06-14 19:48] LABS: BARBITURATE SCREEN,URINE NEGATIVE (CUTOFF=200); BENZODIAZEPINES SCREEN,URINE NEGATIVE (CUTOFF=150); BUPRENORPHINE SCREEN,URINE NEGATIVE (CUTOFF=10); METHADONE SCREEN, URINE NEGATIVE (CUT0FF=200); METHAMPHETAMINES SCREEN, URINE NEGATIVE (CUTOFF=500); OXYCODONE SCREEN,URINE NEGATIVE (CUT0FF=100); THC SCREEN,URINE 20 NG/ML PRESUMPTIVE POSITIVE (CUTOFF=50)
[2023-06-14 19:50] LABS: AMPHETAMINES SCREEN, URINE NEGATIVE (CUTOFF=500)
[2023-06-14 19:59] LABS: ALBUMIN 3.6 g/dl (3.4-5.0); ANION GAP 13.3 (5-15); BILIRUBIN TOTAL 0.3 mg/dL (0.2-1.0); CALCIUM 9.2 mg/dL (8.5-10.1); EST CRCL DRUG DOSING (CG) 65.44 mL/min; MAGNESIUM 1.8 mg/dL (1.8-2.4); POTASSIUM,K 4.3 mEq/L (3.5-5.1); PROTEIN TOTAL,TP 7.3 g/dl (6.4-8.2); TSH 3.046 uIU/mL (0.358-3.74)
[2023-06-14 20:39] LABS: CORONAVIRUS COVID-19 NAA NEGATIVE (NEGATIVE); INFLUENZA A NAA NEGATIVE (NEGATIVE)
== END 2023-06-14 21:05 | disposition home or self-care (01) ==
LOC: JD.ED 18:17
DX: R53.1 Weakness (principal); E78.00 Pure hypercholesterolemia, unspecified; J44.9 Chronic obstructive pulmonary disease, unspecified; K21.9 Gastro-esophageal reflux disease without esophagitis; Z20.822 Contact with and (suspected) exposure to COVID-19; Z88.6 Allergy status to analgesic agent; Z91.048 Other nonmedicinal substance allergy status; Z79.82 Long term (current) use of aspirin; Z79.899 Other long term (current) drug therapy
CPT/HCPCS: 0240U; 36415; 80053; 80306; 81001; 82550; 83735; 83880; 84443; 84484; 85025; 93005; 99285; 93010; 99283

== ENCOUNTER 2023-07-19 12:38 | Emergency (ER) | payer OTHER ==
[2023-07-19 14:07] VITALS: BP 107/71; PULSE 72
== END 2023-07-19 13:38 | disposition home or self-care (01) ==
LOC: JD.ED 12:38
DX: S69.92XA Unspecified injury of left wrist, hand and finger(s), initial encounter (principal); J44.9 Chronic obstructive pulmonary disease, unspecified; E78.00 Pure hypercholesterolemia, unspecified; Z90.49 Acquired absence of other specified parts of digestive tract; Z79.82 Long term (current) use of aspirin; Z79.899 Other long term (current) drug therapy; X58.XXXA Exposure to other specified factors, initial encounter
CPT/HCPCS: 99283

== ENCOUNTER 2024-03-20 11:22 | Emergency (ER) | payer OTHER ==
[2024-03-20] MEDS: HYDROmorphone 0.5 MG/0.5 ML Syringe IVPUSH ONE (12:19)
[2024-03-20] MEDS: Ketorolac 15 MG/ML SDV IVPUSH ONE (12:20)
[2024-03-20] MEDS: Sodium Chloride 0.9% 10 ML Syringe FLUSH PRN (12:21)
[2024-03-20] MEDS: Sodium Chloride 0.9% 1,000 ML IV SCH (12:21)
[2024-03-20 12:22] LABS: BASOPHILS ABSOLUTE AUTO 0.2 K/mm3 (0.0-0.2); BASOPHILS PERCENT AUTO 1.9 % (0.0-1.0); EOSINOPHILS ABSOLUTE AUTO 0.3 K/mm3 (0.0-0.4); EOSINOPHILS PERCENT AUTO 3.5 % (0.0-6.0); HEMATOCRIT 42.3 % (42.0-52.0); HEMOGLOBIN 14.3 gm/dl (14.0-18.0); IMMATURE GRAN ABSOLUTE AUTO 0.03 K/mm3 (0.00-0.05); IMMATURE GRAN PERCENT AUTO 0.4 % (0.0-0.4); LYMPHOCYTES ABSOLUTE AUTO 3.1 K/mm3 (1.0-4.8); LYMPHOCYTES PERCENT AUTO 38.3 % (24.0-44.0); MEAN CORPUSCULAR HEMOGLOBIN 29.8 pg (28.0-32.0); MEAN CORPUSCULAR HGB CONC 33.8 g/dl (32.0-36.0); MEAN CORPUSCULAR VOLUME 88.1 fl (83.0-99.0); MEAN PLATELET VOLUME 10.2 fl (9.4-12.4); MONOCYTES ABSOLUTE AUTO 0.7 K/mm3 (0.0-0.8); MONOCYTES PERCENT AUTO 9.1 % (0.0-8.0); NEUTROPHILS ABSOLUTE AUTO 3.8 K/mm3 (1.8-7.7); NEUTROPHILS PERCENT AUTO 46.8 % (41.0-71.0); PLATELET COUNT,PLT 491 K/mm3 (150-400)
[2024-03-20 12:43] LABS: ALBUMIN 3.5 g/dl (3.4-5.0); ANION GAP 15.2 (5-15); BILIRUBIN TOTAL 0.5 mg/dL (0.2-1.0); BUN/CREATININE RATIO 17.8 (14-18); CALCIUM 8.9 mg/dL (8.5-10.1); CREATININE 0.9 mg/dL (0.7-1.3); EST CRCL DRUG DOSING (CG) 67.91 mL/min; POTASSIUM,K 4.2 mEq/L (3.5-5.1)
[2024-03-20 14:04] LABS: APPEARANCE,URINE CLEAR (Clear); BILIRUBIN,URINE NEGATIVE (Negative); COLOR,URINE YELLOW (Yellow); GLUCOSE,URINE NEGATIVE (Negative); KETONES,URINE NEGATIVE (Negative); LEUKOCYTE ESTERASE,URINE NEGATIVE (Negative); NITRITE,URINE NEGATIVE (Negative); OCCULT BLOOD,URINE NEGATIVE (Negative); PROTEIN,URINE NEGATIVE (Negative); UROBILINOGEN,URINE 0.2 (0.2-1.0)
[2024-03-20 14:30] LABS: BACTERIA,URINE FEW /hpf (FEW); MUCUS,URINE NOT SEEN /hpf (FEW); RBC,URINE 0-5 /hpf (0-5); SQUAMOUS EPITHELIAL CELLS,UR NOT SEEN /hpf (0-5); WBC,URINE 0-5 /hpf (0-5)
[2024-03-20 18:33] VITALS: BP 107/94; PULSE 61
== END 2024-03-20 15:25 | disposition home or self-care (01) ==
LOC: JD.ED 11:22
DX: M54.50 Low back pain, unspecified (principal); E78.00 Pure hypercholesterolemia, unspecified; J44.9 Chronic obstructive pulmonary disease, unspecified; M19.90 Unspecified osteoarthritis, unspecified site; Z90.49 Acquired absence of other specified parts of digestive tract; Z79.899 Other long term (current) drug therapy; Z79.82 Long term (current) use of aspirin; Z91.048 Other nonmedicinal substance allergy status; Z88.8 Allergy status to other drugs, medicaments and biological substances
CPT/HCPCS: 36415; 74176; 80053; 80307; 81001; 83690; 85025; 96361; 96374; 96375; 99284; J1170; J1885; J3490; J7030

== ENCOUNTER 2024-07-04 13:32 | Emergency (ER) | payer OTHER ==
[2024-07-04 15:25] VITALS: BP 132/81; PULSE 81
== END 2024-07-04 15:24 | disposition home or self-care (01) ==
LOC: JD.ED 13:32
DX: M19.071 Primary osteoarthritis, right ankle and foot (principal); J44.9 Chronic obstructive pulmonary disease, unspecified; F17.210 Nicotine dependence, cigarettes, uncomplicated; Z90.49 Acquired absence of other specified parts of digestive tract; Z88.8 Allergy status to other drugs, medicaments and biological substances; Z91.048 Other nonmedicinal substance allergy status; Z79.51 Long term (current) use of inhaled steroids; Z79.82 Long term (current) use of aspirin; Z79.899 Other long term (current) drug therapy
CPT/HCPCS: 73630-26-RT; 73630-RT; 99283

== ENCOUNTER 2025-03-28 07:18 | Day surgery (SDC) | payer OTHER ==
[~2025-03-28 07:18] MED LIST: Sodium Chloride 0.9% 10 ML Syringe FLUSH PRN; Sodium Chloride 0.9% 10 ML Syringe FLUSH SCH
[2025-03-28] MEDS: Lactated Ringers 1,000 ML IV SCH (07:55)
[2025-03-28] MEDS ORDERED: Propofol 200 MG/20 ML SDV ONE (08:00)
[2025-03-28] MEDS ORDERED: Lidocaine 1% 2 ML ONE (08:00)
[2025-03-28] MEDS: Albuterol 0.083% 2.5 MG/3 ML Neb Soln NEB ONE (08:00)
[2025-03-28 13:35] VITALS: BP 122/80; PULSE 80
== END 2025-03-28 09:40 | disposition home or self-care (01) ==
LOC: JD.SDS 07:18
PROVIDERS: ATTEND Surgery
DX: Z12.11 Encounter for screening for malignant neoplasm of colon (principal); K64.0 First degree hemorrhoids; Z88.8 Allergy status to other drugs, medicaments and biological substances; Z91.09 Other allergy status, other than to drugs and biological substances; Z79.899 Other long term (current) drug therapy; Z86.0100 Personal history of colon polyps, unspecified
CPT/HCPCS: 45378; J2003; J2704; J7120; J7613; 00812; 99100; A9270-GY; G0105